=== PATIENT | female | born 2000 | race Caucasian/White ===

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

== ENCOUNTER 2023-11-29 13:46 | Emergency (ER) | payer OTHER, SELFPAY ==
[2023-11-29 13:58] VITALS: BP 111/62; PULSE 80; RESP 18; TEMP 37.1; O2SAT 100
--- NOTE | 2023-11-29 14:05 | ED.SKABFB ---
HPI - Skin/Abscess/Foreign Bdy General Chief complaint: Upper Respiratory Infection Stated complaint: chest,face,red. face swollen Time Seen by Provider: 11/29/23 14:00 Source: patient Mode of arrival: ambulatory Limitations: no limitations History of Present Illness HPI narrative: Heidi is a 23-year-old female patient presenting to the clinic today with complaints red rash to her chest and face and reports that this morning she woke up and her face was swollen. She did not feel as though her face was very swollen however mom thought her face was swollen. Blood pressure is 111/62 with heart rate of 80 beats per minute. Patient denies any fevers, chills, body aches, or sore throat. Does have some nasal congestion but suffers from seasonal allergies. Denies any chest pain or shortness of breath. Reports she vomited yesterday and normally gets the red face and red chest after vomiting however it has not gone away. Patient is 3 para 0. She is 36 weeks and 5 days. No vaginal discharge/bleeding. No abdomen pain. Related Data Allergies Allergy/AdvReac Type Severity Reaction Status Date / Time Sulfa (Sulfonamide Allergy Unknown NKA Verified 11/29/23 13:59 Antibiotics) Penicillins Allergy Unknown Verified 11/29/23 13:59 Review of Systems Review of Systems: Pertinent positives per HPI. Patient denies any fever, chills, headache, visual changes, dizziness, cough, runny nose, sore throat, shortness of breath, chest pain, palpitations, nausea, vomiting, diarrhea, constipation, abdominal pain, or any urinary issues. PMFSH Past Medical History Medical History No active medical problems Family History Family History Other Family history non-contributory Social History Social History Smoking status: Former smoker Substance use: current Substance use type: marijuana Comments At the time of my signature, I reviewed and agree with the nursing past medical, surgical, social, and family history. There is no relevant family history pertinent to the patient complaint. Exam Narrative: General: Well-developed, well nourished, , in no apparent distress Head: Normocephalic, atraumatic Eyes: Pupils equally round and reactive to light bilaterally, EOM intact, sclera and conjunctive clear, no discharge, lids normal Ears: TMs intact and clear, ear canals clear, no drainage, grossly hearing normal. Nose: Nares patent, no discharge, no inflammation, no sinus tenderness. Mouth: Oropharynx red with bilateral tonsillar enlargement without lesions or masses, good dentition, MMM. Neck: Supple, trachea midline, no enlargement of anterior or posterior cervical nodes, no thyroid masses or goiter palpable. Cardio: Regular rate and rhythm, s1 and s2 normal, no murmur appreciated. Resp: Clear to auscultation bilaterally anteriorly and posteriorly, no rhonchi, rales, wheezing or rubs Integumentary: [place], warm, and dry, intact without lesion, does have some mild chest and facial flushing. Course Course Emergency Course: Portions of this record may have been created with voice recognition software. Level of Care: Express Care Visit Vital Signs Vital signs: Vital Signs Temperature 37.1 C 11/29/23 13:58 Pulse Rate 80 11/29/23 13:58 Respiratory Rate 18 11/29/23 13:58 Blood Pressure 111/62 11/29/23 13:58 Pulse Oximetry 100 11/29/23 13:58 Oxygen Delivery Room Air 11/29/23 13:58 Temperature 37.1 C 11/29/23 13:58 Pulse Rate 80 11/29/23 13:58 Respiratory Rate 18 11/29/23 13:58 Blood Pressure 111/62 11/29/23 13:58 Pulse Oximetry 100 11/29/23 13:58 Oxygen Delivery Room Air 11/29/23 13:58 Vital signs reviewed MDM - Skin/Abscess/Foreign Bdy MDM Narrative Medical decision making narrative:
[2023-11-29 14:21] LABS: EDSTREPNEGPOS1 Positive (Negative)
[2023-11-29 14:23] LABS: EDUAAPPEAR Clear; EDUABILI 1+ (Negative); EDUABLOOD Negative (Negative); EDUACOLOR1 Amber; EDUAGLUCOSE Negative (Negative); EDUAKETONE 2+ (Negative); EDUALEUKO Trace (Negative); EDUANITRATE Negative (Negative); EDUAPH 6.5; EDUAPROTEIN 1+ (Negative); EDUASPGRAVITY 1.025
== END 2023-11-29 14:35 | disposition home or self-care (01) ==
PROVIDERS: Emergency Provider Nurse Practitioner Family
DX: O99.513 Diseases of the respiratory system complicating pregnancy, third trimester (principal); J02.0 Streptococcal pharyngitis; O12.13 Gestational proteinuria, third trimester; Z3A.36 36 weeks gestation of pregnancy; O99.323 Drug use complicating pregnancy, third trimester
CPT/HCPCS: 81003; 87086; 87880; 99213; G0463

== ENCOUNTER 2023-12-16 00:38 | Inpatient (IN) | payer OTHER, SELFPAY ==
[2023-12-16] VITALS (274 sets, daily range): BP systolic 77–132; BP diastolic 40–104; PULSE 61–148; RESP 16; TEMP 36.3–37.2; O2SAT 71–100; BMI 28.7
--- NOTE | 2023-12-16 01:44 | LDADM ---
This patient, Heidi Potts, was admitted to Labor/Delivery/Recovery 104 on 12/16/23 at 00:38. Plans for labor, pain management and were discussed with patient. Patient/family oriented to hospital policies and general routines including ID bracelet, bed and alarms, visiting hours, pain management, procedures, bathroom and other care routines, personal items, smoking policy, room service/diet and guest tray routines, infant security routines, and visiting hours. Patient/Family are encouraged to report perceived risks to care and to ask questions if they do not understand what they are told or what they should do. See OBIX for further documentation.
[2023-12-16 02:12] LABS: Basophils Absolute Auto 0.1 K/mm3 (0.0-0.1); Basophils Percent Auto 0.3 % (0.2-1.2); Eosinophils Absolute Auto 0.3 K/mm3 (0-0.3); Eosinophils Percent Auto 1.7 % (0-4.4); Hematocrit 35.6 % (37.0-47.0); Hemoglobin 12.6 g/dL (12.0-15.0); Immature Granulocyte Absolute 0.21 K/mm3 (0.00-0.031); Immature Granulocyte Percent A 1.5 % (0-0.5); Lymphocytes Absolute Auto 2.69 K/mm3 (0.9-3.2); Lymphocytes Percent Auto 18.6 % (18.3-44.2); Mean Corpuscular HGB Conc 35.4 g/dl (32-36); Mean Corpuscular Hemoglobin 33.2 pg (26-34); Mean Corpuscular Volume 93.7 fl (80-100); Mean Platelet Volume 10.4 fl (7.4-10.4); Monocytes Absolute Auto 1.2 K/mm3 (0.1-0.6); Monocytes Percent Auto 8.6 % (2.6-8.5); Neutrophils Percent Auto 69.3 % (45.5-73.1); Platelet Count Result 332 k/mm3 (150-375); Red Cell Distribution Width 13.4 % (11.5-14.5); White Blood Count 14.5 K/mm3 (4.5-10.0)
[2023-12-16 03:06] LABS: HIV 1/2 Ab P24 Ag Result Negative (Negative)
[2023-12-16 03:08] LABS: Rapid Plasma Reagin Non-Reactive (NonReactive)
[2023-12-16] MEDS: OXYTOCIN 30 UNITS/NS 500 ML 30 UNITS/500 ML BAG IV CONT (05:44)
[2023-12-16] MEDS: LACTATED RINGERS 1,000 ML 125 ML IV CONT ×4 (05:44→15:40)
[2023-12-16] MEDS: fentaNYL CITRATE INJ (*CRX) 100 MCG/2 ML VIAL IV PUSH (06:41)
--- NOTE | 2023-12-16 07:21 | WPDOBADMIT ---
Obstetrics - Admit Note Admission Note: record reviewed. No pertinent additions to the history and/or any subsequent changes in the physical findings that are not consistent with the expected course of the were found. Additions to the history and/or subsequent changes in the physical findings follow. admit in labor, SROM, anticipate vaginal delivery
[2023-12-16] MEDS: ONDANSETRON INJ 4 MG/2 ML VIAL IV PUSH (08:20)
--- NOTE | 2023-12-16 17:23 | P.PCNOB_ITS ---
OB - Vaginal Delivery Note Procedure Delivery date: 12/16/23 Induction method: None Delivery augmentation: Pitocin Delivery monitor: External FHT and Internal Uterine Route of delivery: Episiotomy description: None Laceration Description: Perineal - 1st Degree Delivery repair: vicryl Specimen: No Quantitative Blood Loss (ml): 175 Anesthesia type: Epidural Disposition: Floor Narrative: head delivered, slow to rotate to BALDO, anterior shoulder not easily delivered. crystal and then small amount of suprapubic pressure and anterior shoulder delivered easily along the rest of the baby. less tahn 30 sec. moving a ll extremities. skin to skin and in stable condition Center Baby Date of : 12/16/23 Time of : 17:06 Gestational Age by Date: 39 gender: Male presentation: vertex position: Left Occiput Anterior Placenta delivery description: Spontaneous Cord Vessel Description: 3 Vessels and Delayed Cord Clamping score one minute: 7 score five minutes: 9
[2023-12-16] MEDS: OXYTOCIN 30 UNITS/NS 500 ML 30 UNITS/500 ML BAG 125 UNITS IV CONT (17:36)
[2023-12-16] MEDS: IBUPROFEN 600 MG TABLET PO (18:47)
[2023-12-16] MEDS: ACETAMINOPHEN 325 MG TABLET 650 MG PO (18:48)
[2023-12-16] MEDS: WITCH HAZEL 40 PADS 1 PAD TOPICAL (19:44)
[2023-12-16] MEDS: BENZOCAINE 20% AER SPR (*SP) 56 GM CAN 1 SPRAY TOPICAL (19:44)
[2023-12-17] MEDS: ACETAMINOPHEN 325 MG TABLET 650 MG PO ×2 (00:49→08:08)
[2023-12-17] MEDS: IBUPROFEN 600 MG TABLET PO ×3 (00:50→18:20)
[2023-12-17 05:59] LABS: Hematocrit 31.3 % (37.0-47.0); Hemoglobin 10.6 g/dL (12.0-15.0)
--- NOTE | 2023-12-17 07:29 | PM.OBPNVD ---
OB - PN: Subj Subjective Date/time seen: 12/17/23 07:29 Interval history: pp day 1 doing well OB - PN: Obj Data Labs 12/17/23 04:37 Labs: Laboratory Results - last 24 hr 12/17/23 04:37 Hgb 10.6 L Hct 31.3 L OB - PN A/P Plan day: 1 Plan: routine care Time Spent With Patient Time: Total time spent is greater than 50% in coordination of care (as documented) at patient's floor/unit and/or counseling patient: Review of Systems Review of Systems: All systems reviewed & are unremarkable except as noted in HPI and below Exam Const: General: cooperative, healthy appearing and comfortable Resp: Effort & Inspection: normal respiratory effort Cardio: Rate: regular rate
[2023-12-17 08:00] VITALS: BP 124/74; PULSE 80; RESP 18; TEMP 37.1; O2SAT 99
[2023-12-17] MEDS: DOCUSATE SODIUM 100 MG CAPSULE PO (08:08)
--- NOTE | 2023-12-17 08:35 | PC.NURSE ---
Consulted with patient to assess needs related to . Discussed with mother her successes, concerns and any questions she has. We reviewed working with the , supporting breast, protecting her nipples with an optimal deep latch, good positioning. Encouraged understanding the benefits of skin to skin, responding to feeding cues, frequencies of feeding 8-12 times in 24 hours (approximately 2-3 hours), duration of feedings, milk production, intake/output feeding sheet and signs of adequate intake encouraging swallowing at the breast. Reviewed positioning and alignment, supporting breast, off-centered (asymmetrical latch) and leading with the chin with big, open, wide gape. Infant latched optimally to the [right] breast in [cross cradle] position. Education given to the mother of how to visualize the suckling (with good rocking jaw motion) swallows. The infant was [able] to maintain latch without discomfort to mother. Mother voiced understanding of the education shared, to call for assistance if the does not latch or if there is discomfort with . Reported to the Primary RN.
--- NOTE | 2023-12-17 10:00 | WPDANLDPN2 ---
Anes-Prog Note L&D Date/Time: 12/17/23 10:00 Comfortable throughout: labor and delivery Neuraxial method: epidural Epidural/Spinal procedure site: clean & non-tender Neuro status: Neuro function grossly intact. Cardiovascular status: normal Respiratory status: normal Airway patency: baseline Mental status: baseline Post-Op hydration status: normal Vital Signs: Last Vital Signs Temp 37.2 C 12/16/23 20:15 Pulse 87 12/16/23 20:15 Resp 16 12/16/23 20:15 BP 101/70 12/16/23 20:15 Pulse Ox 99 12/16/23 20:15 O2 Del Method Room Air 12/16/23 09:18 Pain score (VAS): 3/10 I/O: Intake & Output 12/16/23 12/17/23 12/17/23 23:59 07:59 15:59 Intake Total 600.0 Output Total 250 Balance 350.0 Post-procedural complaints: none Patient feedback: Patient satisfied with anesthetic care.
[2023-12-17] MEDS: MULTIVIT/MIN/PREN/FOL AC/IRON TABLET 1 TAB PO (11:06)
[2023-12-17 12:18] VITALS: BP 118/50; PULSE 75; RESP 16; TEMP 36.9; O2SAT 100
[2023-12-17 16:00] VITALS: BP 134/81; PULSE 97; RESP 18; TEMP 36.8; O2SAT 98
[2023-12-17 20:00] VITALS: BP 122/79; PULSE 80; RESP 18; TEMP 36.7
[2023-12-18] MEDS: IBUPROFEN 600 MG TABLET PO ×2 (03:59→12:03)
[2023-12-18 08:15] VITALS: BP 118/83; PULSE 77; RESP 20; TEMP 36.1; O2SAT 100
[2023-12-18] MEDS: MULTIVIT/MIN/PREN/FOL AC/IRON TABLET 1 TAB PO (09:08)
[2023-12-18] MEDS: ACETAMINOPHEN 325 MG TABLET 650 MG PO (09:08)
--- NOTE | 2023-12-18 09:08 | PM.OBPNVD ---
OB - PN: Subj Subjective Date/time seen: 12/18/23 09:08 Interval history: pp day 2 doing well desires d/c home OB - PN: Obj Data Labs 12/17/23 04:37 OB - PN A/P Plan day: 2 Plan: routine care and discharge home Time Spent With Patient Time: Total time spent is greater than 50% in coordination of care (as documented) at patient's floor/unit and/or counseling patient: Review of Systems Review of Systems: All systems reviewed & are unremarkable except as noted in HPI and below Exam Const: General: cooperative and healthy appearing Chest: Chest palpation & inspection: normal inspection of the chest Resp: Effort & Inspection: normal respiratory effort Cardio: Rate: regular rate Skin: General skin exam: normal color
--- NOTE | 2023-12-18 09:10 | P.DS_ITS ---
DS: Admitting Diagnosis Discharge Date 12/18/23 Admitting Diagnosis SROM DS: Discharge Diagnosis Discharge Diagnosis (1) Vaginal delivery: Code(s): O80 - Encounter for full-term uncomplicated delivery Status: Acute OB - DS: Summary OB Procedures : None OB Procedures Intrapartum: Spontaneous Vag Delivery OB Procedures: : None Peripartum Data Laceration Description: Perineal - 1st Degree Episiotomy description: None Time Spent with Patient Time attestation: Total time spent providing and/or coordinating discharge services: Discharge Plan Discharge Attending physician on discharge: Guilherme Snyder Discharging Clinician: Chyna Trejo Patient Disposition: Home, Self-Care Activity: pelvic rest Diet: regular Patient Instructions: Antibiotic Form Stand Alone Forms: General Discharge Information Follow-up/Referrals: Chyna Trejo CNM [Certified Nurse Mobile Application Development Lead] - 4 Weeks Discharge Medications: New ibuprofen 600 mg Tablet 600 mg PO Q6H PRN (Reason: Cramping) Qty: 30 0RF Discontinued cefdinir 300 mg capsule 300 mg PO Q12H 10 Days Qty: 20 0RF Date of admission: 12/16/23 00:38 Primary Care Provider: UNKNOWN,DOCTOR Admitting Provider: Guilherme Snyder Attending physician on admission: Guilherme Snyder Condition: Stable
--- NOTE | 2023-12-18 11:30 | PC.NURSE ---
Mother verbalizes she is able to independently latch with appropriate positioning and alignment. She has some nipple discomfort and is responsively . She has a small blister on her left nipple and we discussed rotating positions to prevent rubbing and making sure baby maintains the deep latch throughout the feeding. Baby is sleepy this morning due to circumcision, but he is having transitional stools and cluster fed through the night. Encouraged mom to rest today because baby will most likely cluster feed again tonight. Observed a latch, and though baby was sleepy and not sucking much, it does appear he has a good latch. Mom makes sure the bottom lip isn't rolled in. She handles him very well and supports her breast for a deep latch. is currently meeting outcomes for weight, output, jaundice, blood sugar and feeding frequencies of 8-12 times in 24 hours. Mother declines any additional assistance or education at this time. Mother is encouraged to call for assistance if her infant doesn?t latch, pain with latching, questions or concerns. Mother voiced understanding of information shared along with the mom/baby guide for an additional resource. Reported to the Primary RN.
--- NOTE | 2023-12-18 11:38 | PC.NURSE ---
Patient viewed the discharge video Mother & Baby Care, The First Two Weeks . Patient was given the opportunity and encouraged to ask questions. Patient verbalized understanding of information shared and has been given the mother/baby guide for home reference.
[2023-12-20 11:34] VITALS: BP 123/68; PULSE 85; RESP 18; TEMP 36.7; O2SAT 100
== END 2023-12-18 12:15 | disposition home or self-care (01) | DRG 560 ==
LOC: ANHLDR 01:53 → ANHOB2 20:00
PROVIDERS: Advanced Practice Midwife; Admitting Provider Obstetrics & Gynecology; Visit Provider Obstetrics & Gynecology
DX: O70.0 First degree perineal laceration during delivery (principal); Z3A.39 39 weeks gestation of pregnancy; Z37.0 Single live birth
CPT/HCPCS: 36415; 85014; 85018; 85025; 86592; 86703; 86850; 86900; 86901; A9270; G0432; J2405; J2590; J2795; J3010; J7120